=== PATIENT | female | born 1985 | race Caucasian/White ===

== ENCOUNTER 2019-06-06 07:19 | Outpatient (CLI) | payer OTHER ==
[2019-06-06] MEDS ORDERED: SINCALIDE (KINEVAC) 5 MCG ONE (07:21)
== END 2019-06-06 23:59 | disposition home or self-care (01) ==
LOC: PETCFH 07:19
DX: K31.9 Disease of stomach and duodenum, unspecified (principal); R14.0 Abdominal distension (gaseous)
CPT/HCPCS: 78227; A9537; J2805

== ENCOUNTER → 2020-01-03 | Outpatient (CLI) | payer OTHER ==
[~2020-01-03] MED LIST: GADOTERATE 2.5 MMOL/5 ML VIAL ONE; LIDOCAINE-MPF 1%, 5ML ONE; OMNIPAQUE 300 MG/ML, 10ML VIAL ONE; ROPivacaine/PF 0.2%, 10 ML ONE
== END | disposition home or self-care (01) ==
LOC: RAD 08:36
PROVIDERS: ATTEND Physician Assistant Surgical
DX: M21.852 Other specified acquired deformities of left thigh (principal); K21.9 Gastro-esophageal reflux disease without esophagitis
CPT/HCPCS: 73525; 73722; A9575; J2795; Q9967